=== PATIENT | female | born 1985 | race African-American/Black ===

== ENCOUNTER 2019-03-11 09:49 | Emergency (ER) | payer BC, SELFPAY ==
--- NOTE | 2019-03-11 09:58 | ED.URI ---
HPI - URI/Sore Throat General Chief Complaint: Upper Respiratory Infection Stated Complaint: cough/chills/head congestion/body aches Time Seen by Provider: 03/11/19 10:30 Source: patient and RN notes reviewed Mode of arrival: ambulatory Limitations: no limitations History of Present Illness HPI Narrative: 33-year-old female presents with concern for fever, body aches, headache, nasal congestion, ear pain that started yesterday. Reports she has been taking Motrin with little relief. MD elicited complaint: cough Related Data Allergies Allergy/AdvReac Type Severity Reaction Status Date / Time sulfamethoxazole Allergy Severe Swelling Verified 10/20/17 08:36 trimethoprim Allergy Severe Swelling Verified 10/20/17 08:36 Penicillins Allergy Mild Verified 10/20/17 08:36 Review of Systems Review of Systems: Narrative: CONSTITUTIONAL: Reports malaise, chills, sweats, fever. EYES: Denies visual changes, redness, or discharge. ENT: Reports rhinorrhea, congestion, sinus pain, otalgia and sore throat. CARDIOVASCULAR: Denies chest pain, palpitations, or edema. RESPIRATORY: Reports cough. Denies dyspnea. GASTROINTESTINAL: Denies abdominal pain, nausea, vomiting, diarrhea SKIN: Denies rash or itching. MUSCULOSKELETAL: Reports myalgia. NEUROLOGIC: Reports headache. All systems reviewed & are unremarkable except as noted in HPI and below PMFSH Comments At time of signature, agree with nursing past medical, surgical, social and family history. There is no relevant family history pertinent to the presenting complaint Exam Narrative: Exam Narrative: GENERAL: Well-appearing, well-nourished, and in no acute distress. HEAD: Normocephalic, atraumatic. EYES: PERRLA, conjunctivae clear, and EOMI. ENT: Nares clear, turbinates edematous and erythematous, clear discharge. Mucous membranes moist. Left TM pearly diaz with dull light reflex, right TM erythematous and bulging; no tragal tenderness. Oropharynx not erythematous without lesions. Tonsils not enlarged and without exudate, no drooling, no hoarseness, no trismus. NECK: Supple. No lymphadenopathy CHEST: Clear to auscultation, breath sounds equal. No wheezing, rhonchi, rales, or stridor. No respiratory distress, speaks in full sentences. HEART: Regular rate and rhythm. No murmur heard. Normal peripheral pulses. SKIN: Warm, dry, no rash. NEURO: Alert and oriented x3. PSYCH: Normal mood and affect Course Course Emergency Course: Patient is aware of diagnosis, understands and agrees to treatment plan. Anticipatory guidance given. Patient agrees to follow-up as directed and is aware of reasons to seek care at the emergency department. Portions of this record may have been created with voice recognition software Vital Signs Vital signs: Vital Signs Temperature 98.0 F 03/11/19 10:06 Pulse Rate 114 H 03/11/19 10:06 Respiratory Rate 20 03/11/19 10:06 Blood Pressure 117/63 03/11/19 10:06 Pulse Oximetry 100 03/11/19 10:06 Temperature 98.0 F 03/11/19 10:06 Pulse Rate 114 H 03/11/19 10:06 Respiratory Rate 03/11/19 10:06 Blood Pressure 117/63 03/11/19 10:06 Pulse Oximetry 100 03/11/19 10:06 Reviewed. MDM - URI/Sore Throat MDM Narrative Medical decision making narrative: Differential diagnosis considered: Strep pharyngitis, allergic rhinitis, upper respiratory tract infection, sinusitis, rhinosinusitis, nasopharyngitis. viral pharyngitis, otitis media, otitis externa, pneumonia, bronchitis, viral cough syndrome, viral syndrome, and influenza. Exam findings show no acute concerns or changes; patient is non-toxic appearing and is in no distress. Patient is appropriate for outpatient treatment and follow-up. Lab Data Attestation: I reviewed the patient's lab results. Labs: Influenza A Screen Positive Reference Range: Negative Influenza B Screen Negative Reference Range: Negative Critical Care Time Critical Care Time Critical
[2019-03-11 10:06] VITALS: BP 117/63; PULSE 114; RESP 20; TEMP 36.7; O2SAT 100
[2019-03-11] MEDS: IBUPROFEN 600 MG TABLET PO (10:48)
== END 2019-03-11 10:50 | disposition home or self-care (01) ==
PROVIDERS: Emergency Provider Nurse Practitioner
DX: J10.1 Influenza due to other identified influenza virus with other respiratory manifestations (principal); H66.001 Acute suppurative otitis media without spontaneous rupture of ear drum, right ear
CPT/HCPCS: 87804; 99213; A9270; G0463